=== PATIENT | male | born 1975 | race Hispanic/Latino ===

== ENCOUNTER 2022-02-22 20:51 | Observation (INO) | payer MEDICARE, SELFPAY ==
[2022-02-22 21:50] LABS: Amphetamine Not Detected (NotDetected); Barbiturates Screen Not Detected (NotDetected); Benzodiazepine Screen Not Detected (NotDetected); Cocaine Metabolite Screen Detected (NotDetected); Methadone Not Detected (NotDetected); Methamphetamine Not Detected (NotDetected); Opiate Screen Not Detected (NotDetected); Oxycodone Screen Not Detected (NotDetected); Phencyclidine (PCP) Not Detected (NotDetected); THC/Cannabinoid Screen Not Detected (NotDetected); Tricyclic Screen Not Detected (NotDetected)
[2022-02-22 23:57] LABS: #Eosinphils 0.2 thou/uL (0.0-0.7); #Lymphocytes 1.7 thou/uL (1.20-3.40); #Monocytes 1.1 thou/uL (0.11-0.59); #Neutrophils 5.6 thou/uL (1.40-6.50); %Basophils 0.4 % (0.0-1.0); %Eosinophils 1.9 % (0.0-10.0); %Lymphocytes 20.1 % (21.0-51.0); %Monocytes 12.4 % (0.0-10.0); %Neutrophils 65.1 % (42.0-75.0); Hemoglobin 16.4 g/dL (14.0-18.0); Mean Corpuscular HGB CONC 35.4 g/dL (32.0-36.0); Mean Corpuscular Hemoglobin 33.8 pg (27.0-31.0); Mean Corpuscular Volume 95.6 fL (78.0-98.0); Mean Platelet Volume 10.6 fL (7.4-10.4); Platelet Count 121 thou/uL (130-400); Red Blood Cell (RBC) Count 4.84 mill/uL (4.70-6.10); White Blood Cell (WBC) Count 8.5 thou/uL (4.8-10.8)
[2022-02-23 00:12] LABS: ALT (SGPT) 30 U/L (8-55); AST (SGOT) 48 U/L (5-34); Albumin 4.5 g/dL (3.5-5.0); Alkaline Phosphatase 46 U/L (40-110); Anion Gap 14 mmol/L (10-20); BUN (Urea Nitrogen) 6 mg/dL (8.9-20.6); Bilirubin, Total 1.6 mg/dL (0.2-1.2); CK (CPK) 1855 U/L (30-200); Calc. Creatinine Clearance 0 mL/min (70-130); Calcium 9.2 mg/dL (7.8-10.44); Carbon Dioxide 28 mmol/L (22-29); Chloride 99 mmol/L (98-107); Estimated GFR 107; Globulin 2.9 g/dL (2.4-3.5); Glucose 106 mg/dL (70-105); Potassium 3.3 mmol/L (3.5-5.1); Protein, Total 7.4 g/dL (6.0-8.3); Sodium 138 mmol/L (136-145)
[2022-02-23 00:28] LABS: Eosinophils 1 % (0-10); Lymphocytes 17 % (21-51); MDiff Complete? YES; Monocytes 13 % (0-10); Neutrophil 69 % (42-75); Platelet Morphology Comment Appears Decreased; RBC Morphology Normal
[2022-02-23 06:52] LABS: Troponin I Less than 0.010 ng/mL (< 0.028)
[2022-02-23] MEDS ORDERED: Ondansetron ODT 4 MG TAB PO PRN (08:29)
[2022-02-23] MEDS ORDERED: Ondansetron PF 4 MG/2 ML Vial IVP PRN (08:29)
[2022-02-23] MEDS ORDERED: Potassium Chloride 20 MEQ TAB PO SCH (08:45)
[2022-02-23] MEDS: Sodium Chloride 0.9% 1,000 ML IV SCH (08:59)
[2022-02-23 09:02] LABS: Troponin I Less than 0.010 ng/mL (< 0.028)
[2022-02-23 09:14] LABS: Magnesium 2.2 mg/dL (1.6-2.6)
[2022-02-23] MEDS ORDERED: Potassium Chloride 20 MEQ TAB ONE (09:47)
[2022-02-23 10:36] LABS: SARS-CoV-2 NAA Rapid Test Not Detected (NotDetected)
[2022-02-24] MEDS: Sodium Chloride 0.9% 1,000 ML IV SCH ×2 (00:43→02:19)
[2022-02-24 05:13] LABS: #Eosinphils 0.2 thou/uL (0.0-0.7); #Lymphocytes 2.1 thou/uL (1.20-3.40); #Monocytes 0.6 thou/uL (0.11-0.59); #Neutrophils 3.2 thou/uL (1.40-6.50); %Basophils 0.6 % (0.0-1.0); %Eosinophils 2.9 % (0.0-10.0); %Lymphocytes 34.3 % (21.0-51.0); %Monocytes 10.4 % (0.0-10.0); %Neutrophils 51.9 % (42.0-75.0); Hemoglobin 13.9 g/dL (14.0-18.0); Mean Corpuscular HGB CONC 33.5 g/dL (32.0-36.0); Mean Corpuscular Hemoglobin 32.7 pg (27.0-31.0); Mean Corpuscular Volume 97.7 fL (78.0-98.0); Mean Platelet Volume 10.4 fL (7.4-10.4); Platelet Count 115 thou/uL (130-400); RBC Distribution Width 12.1 % (11.5-14.5); Red Blood Cell (RBC) Count 4.24 mill/uL (4.70-6.10); White Blood Cell (WBC) Count 6.2 thou/uL (4.8-10.8)
[2022-02-24 05:21] LABS: Anion Gap 11 mmol/L (10-20); BUN (Urea Nitrogen) 10 mg/dL (8.9-20.6); CK (CPK) 471 U/L (30-200); Calc. Creatinine Clearance 111 mL/min (70-130); Calcium 8.5 mg/dL (7.8-10.44); Carbon Dioxide 26 mmol/L (22-29); Chloride 106 mmol/L (98-107); Estimated GFR 102; Glucose 118 mg/dL (70-105); Potassium 3.9 mmol/L (3.5-5.1); Sodium 139 mmol/L (136-145)
[2022-02-24] MEDS: Aspirin 81 mg Enteric Coated Tablet PO SCH (08:48)
[2022-02-24 14:05] VITALS: BMI 29.3
[2022-02-25 04:15] VITALS: TEMP 97.6
[2022-02-25 05:31] LABS: Cardiac Risk 4.3 (Less than 4.5)
[2022-02-25 07:29] VITALS: BP 116/73
[2022-02-25] MEDS: Aspirin 81 mg Enteric Coated Tablet PO SCH (10:22)
== END 2022-02-25 11:44 | disposition home or self-care (01) ==
LOC: ERS 20:51 → ERHOLD 02-23 02:54 → EDBD 02-23 02:54 → 2SW 02-23 03:02
PROVIDERS: ADMIT Family Medicine; ATTEND Family Medicine
DX: R07.9 Chest pain, unspecified (principal); F14.10 Cocaine abuse, uncomplicated; M62.82 Rhabdomyolysis; E87.6 Hypokalemia; Z20.822 Contact with and (suspected) exposure to COVID-19; Z79.899 Other long term (current) drug therapy; Z88.6 Allergy status to analgesic agent
CPT/HCPCS: 71045; 80048; 80053; 80061; 80306; 82550 ×3; 83735; 84443; 84484 ×2; 85025 ×2; 93005 ×2; G0378 ×4; U0002; 36415; J7050

== ENCOUNTER 2023-05-03 00:37 | Emergency (ER) | payer MEDICARE ==
[2023-05-03] MEDS ORDERED: Ketorolac Tromethamine 30 MG/ML VIAL ONE (02:50)
[2023-05-03] MEDS ORDERED: predniSONE 20 MG TAB ONE (02:50)
[2023-05-03] MEDS ORDERED: Cyclobenzaprine 10 MG TAB ONE (04:42)
[2023-05-03] MEDS ORDERED: traMADol HCl 50 MG TAB ONE (04:43)
== END 2023-05-03 04:48 | disposition home or self-care (01) ==
LOC: ERS 00:37
DX: M47.816 Spondylosis without myelopathy or radiculopathy, lumbar region (principal); M51.36 Other intervertebral disc degeneration, lumbar region; N20.0 Calculus of kidney
CPT/HCPCS: 72131; 96372; J1885; J7512

== ENCOUNTER 2024-07-17 21:50 | Emergency (ER) | payer MEDICARE | END 2024-07-18 02:15 | disposition home or self-care (01) | LOC: ERS 21:50 | DX: J11.1 Influenza due to unidentified influenza virus with other respiratory manifestations (principal) | CPT/HCPCS: 87428; 99283 ==